=== PATIENT | male | born 1955 | race Caucasian/White ===

== ENCOUNTER 2016-05-30 19:41 | Emergency (ER) | payer SELFPAY ==
[~2016-05-30] VITALS: Ht 167.6 cm; Wt 60.4 kg
[2016-05-30 19:54] VITALS: Ht 167.6 cm; Wt 60.4 kg
== END 2016-05-30 21:39 | disposition left against medical advice (07) ==
LOC: E/R 19:41
DX: Z53.21 Procedure and treatment not carried out due to patient leaving prior to being seen by health care provider (principal)
CPT/HCPCS: 82962